=== PATIENT | male | born 1965 | race Caucasian/White ===

== ENCOUNTER 2020-07-18 05:19 | Emergency (ER) | payer OTHER ==
[~2020-07-18] VITALS: Ht 180.3 cm; Wt 112.5 kg
[2020-07-18] MEDS ORDERED: ALLO100T30 PO (05:41)
[2020-07-18] MEDS ORDERED: ONDANSETRON 2MG/ML, 2ML ONE (05:44)
[2020-07-18] MEDS ORDERED: MORPHINE SULFATE 4 MG/ML, 1ML ONE ×2 (05:45→06:37)
[2020-07-18] MEDS: MORPHINE SULFATE 4 MG/ML, 1ML IVPush PRN ×2 (05:49→06:39)
--- NOTE | 2020-07-18 05:51 | NUR ---
RUQ PAIN, REBOUND TENDERNESS WITH NAUSEATED FEELING. IV STARTED, BLOODS DRAWN AND SENT. ON CONT PULSE OX. CALL FAROOQ IN REACH. MEDICATED PER ORDER. WAITING FOR RADIOLOGY. WILL CONTINUE TO MONITOR. AIDET PROVIDED.
[2020-07-18 05:56] LABS: BASOPHILS % (AUTO) 1 % (0-1); EOSINOPHILS % (AUTO) 2 % (1-7); LYMPHOCYTES % (AUTO) 24 % (22-44); MEAN CORPUSCULAR HEMOGLOBIN 33.6 pg (27.5-34.5); MEAN CORPUSCULAR HGB CONC 34.7 g/dL (33.2-36.2); MEAN PLATELET VOLUME 7.7 fL (7.4-10.4); MONOCYTES % (AUTO) 10 % (2-9); NEUTROPHILS % (AUTO) 64 % (42-75); PLATELET COUNT 178 x10^3/uL (130-400); RED BLOOD COUNT 5.66 x10^6/uL (4.38-5.82); RED CELL DISTRIBUTION WIDTH 13.1 % (9.4-14.8)
--- NOTE | 2020-07-18 05:56 | NUR ---
PLACED ON 2L O2 POST MS ADMIN, O2 SAT DOWN TO 88%. PT WITH HX OF TOBACCO SMOKER, NO HX COPD.
[2020-07-18] MEDS ORDERED: ONDANSETRON 2MG/ML, 2ML IVPush ONE (06:00)
[2020-07-18] MEDS ORDERED: SODIUM CHLORIDE 0.9% 1,000ML IVBOLUS ONE (06:00)
[2020-07-18 06:06] LABS: MD NO
--- NOTE | 2020-07-18 06:09 | NUR ---
REPORTS PAIN DECREASE TO NEARLY 0 AFTER MORPHINE. IVF INFUSING WIDE OPEN. WAITING FOR ULTRASOUND. WILL CONTINUE TO MONITOR.
[2020-07-18 06:11] LABS: ALBUMIN 3.9 g/dL (3.4-5.0); ANION GAP 7 mmol/L (5-15); CALCIUM 8.6 mg/dL (8.5-10.1); CHLORIDE 103 mmol/L (98-107)
[2020-07-18 06:16] LABS: ALANINE AMINOTRANSFERASE 85 U/L (12-78); ALKALINE PHOSPHATASE 108 U/L (45-117); BILIRUBIN,TOTAL 1.2 mg/dL (0.2-1.0); CREATININE 1.39 mg/dL (0.7-1.3); TOTAL PROTEIN 7.4 g/dL (6.4-8.2)
--- NOTE | 2020-07-18 06:31 | NUR ---
BEDSIDE ULTRASOUND IN PROGRESS. IVF INFUSING.
--- NOTE | 2020-07-18 06:45 | NUR ---
BEDSIDE U/S DONE, PT C/O INCREASE PAIN. MEDICATED WITH 2ND DOSE MORPHINE. IVF 1000ML INFUSED. DR RAUSCH AT BEDSIDE TO UPDATE PT. VSS, CALL FAROOQ IN REACH.
--- NOTE | 2020-07-18 07:03 | NUR ---
REPORT RECEIVED FROM MERARI MILES.
[2020-07-18 07:13] VITALS: BP 123/75
--- NOTE | 2020-07-18 07:35 | NUR ---
Patient given discharge instructions and they have confirmed that they understand the instructions. Patient ambulatory with steady gait.
== END 2020-07-18 07:36 | disposition home or self-care (01) ==
LOC: ED 07:23
DX: K80.20 Calculus of gallbladder without cholecystitis without obstruction (principal); R10.11 Right upper quadrant pain; R19.7 Diarrhea, unspecified; Z90.49 Acquired absence of other specified parts of digestive tract
CPT/HCPCS: 36415; 76700; 80053; 83690; 85025; 96361; 96374; 96375; 96376; 99284; J2270; J2405; J7030

== ENCOUNTER 2020-07-26 12:31 | Day surgery (SDC) | payer OTHER ==
[~2020-07-26] VITALS: Ht 180.3 cm; Wt 112.6 kg
[~2020-07-26 12:31] MED LIST: ALLO100T30 PO
[2020-07-26 12:52] VITALS: BP 150/90
[2020-07-26] MEDS ORDERED: CHLORHEXIDINE 15 ML UDC ONE (12:59)
[2020-07-26] MEDS ORDERED: LACTATED RINGERS 1,000 ML IV SCH (13:00)
[2020-07-26] MEDS ORDERED: CHLORHEXIDINE 15 ML UDC MM ONE (13:00)
[2020-07-26] MEDS ORDERED: POTASSIUM PO (13:07)
[2020-07-26] MEDS ORDERED: MAGNESIUM/CALCIUM PO (13:07)
[2020-07-26] MEDS ORDERED: EPINEPHRINE 1 MG/ML, 1ML ONE (13:58)
[2020-07-26] MEDS ORDERED: BUPIVACAINE/PF 0.25% ONE (13:58)
[2020-07-26] MEDS ORDERED: FENTANYL PF 250 MCG/5ML ONE (14:16)
[2020-07-26] MEDS ORDERED: PROPOFOL 50 ML ONE ×2 (14:16→15:04)
[2020-07-26] MEDS ORDERED: MIDAZOLAM 1 MG/ML, 2ML ONE (14:16)
[2020-07-26] MEDS ORDERED: KETOROLAC 30 MG/1 ML ONE (14:20)
[2020-07-26] MEDS ORDERED: CEFAZOLIN 1,000 MG ONE (14:20)
[2020-07-26] MEDS ORDERED: SUCCINYLCHOLINE 20 MG/ML, 10ML ONE (14:46)
[2020-07-26] MEDS ORDERED: DEXAMETHASONE 4 MG/ML, 1ML ONE (14:46)
[2020-07-26] MEDS ORDERED: ONDANSETRON 2MG/ML, 2ML ONE ×2 (14:46→16:27)
[2020-07-26] MEDS ORDERED: ROCURONIUM 10MG/ML,5ML ONE (14:46)
[2020-07-26] MEDS ORDERED: EPHEDRINE 50 MG/ML, 1ML IVPush PRN (15:00)
[2020-07-26] MEDS ORDERED: morphine SULFATE 10 MG/ML, 1ML IVPush PRN (15:00)
[2020-07-26] MEDS ORDERED: LABETALOL 5MG/ML, 20ML IV PRN (15:00)
[2020-07-26] MEDS ORDERED: DIPHENHYDRAMINE 50 MG/ML, 1ML IVPush PRN (15:00)
[2020-07-26] MEDS ORDERED: PROMETHAZINE 25 MG/ML, 1ML IVPush PRN (15:00)
[2020-07-26] MEDS ORDERED: MEPERIDINE/PF 25MG/0.5ML IVPush PRN (15:00)
[2020-07-26] MEDS ORDERED: OXYcodone 5 MG/5 ML ORAL.SOL UDC PO PRN (15:00)
[2020-07-26] MEDS ORDERED: EPHEDRINE 50 MG/ML, 1ML IM PRN (15:00)
[2020-07-26] MEDS ORDERED: DIAZEPAM 5 MG/ML, 2ML IVPush PRN (15:00)
[2020-07-26] MEDS ORDERED: ONDANSETRON 2MG/ML, 2ML IVPush PRN (15:00)
[2020-07-26] MEDS ORDERED: FENTANYL PF 100 MCG/2ML ONE (16:28)
[2020-07-26] MEDS: FENTANYL PF 100 MCG/2ML IV PRN ×2 (16:30→16:40)
[2020-07-26] MEDS ORDERED: OXYcodone 5 MG/5 ML ORAL.SOL UDC ONE (16:40)
== END 2020-07-26 18:05 | disposition home or self-care (01) ==
LOC: OUT 12:31
PROVIDERS: ATTEND Surgery
DX: K80.10 Calculus of gallbladder with chronic cholecystitis without obstruction (principal); Z20.828 Contact with and (suspected) exposure to other viral communicable diseases; M19.90 Unspecified osteoarthritis, unspecified site; F17.210 Nicotine dependence, cigarettes, uncomplicated; Z79.899 Other long term (current) drug therapy; Z98.52 Vasectomy status; Z90.49 Acquired absence of other specified parts of digestive tract; Z98.1 Arthrodesis status; Z98.890 Other specified postprocedural states
CPT/HCPCS: 36415; 47562; 87635; 88304; C1760; J0171; J0330; J1100; J2250; J2405; J2704; J3010; J7120; J0690; J1885